=== PATIENT | female | born 1940 | race Caucasian/White ===

== ENCOUNTER → 2020-12-15 | Outpatient (CLI) | payer MEDICARE, BC ==
[~2020-12-15] MED LIST: INDOCIN 50 MG C50 MG PO; ZOFRAN ODT 4 MG4 MG PO
== END ==
LOC: MRI 15:45
DX: C34.11 Malignant neoplasm of upper lobe, right bronchus or lung (principal); G31.9 Degenerative disease of nervous system, unspecified
CPT/HCPCS: 70553; A9577

== ENCOUNTER 2020-12-29 19:04 | Emergency (ER) | payer MEDICARE, BC ==
[2020-12-29 21:22] LABS: HEMOGLOBIN 8.4 gm/dl (12.3-15.3); RED BLOOD COUNT 2.91 M/UL (4.00-5.10); WHITE BLOOD COUNT 13.2 K/UL (4.5-11.0)
[2020-12-29] MEDS ORDERED: ZOFRAN ODT 4 MG4 MG PO (22:07)
[2020-12-29] MEDS ORDERED: INDOCIN 50 MG C50 MG PO (22:07)
== END 2020-12-29 22:33 | disposition home or self-care (01) ==
LOC: ER1 19:04
PROVIDERS: Physician Assistant
DX: M10.9 Gout, unspecified (principal); I11.9 Hypertensive heart disease without heart failure; E78.5 Hyperlipidemia, unspecified; J44.9 Chronic obstructive pulmonary disease, unspecified; Z85.118 Personal history of other malignant neoplasm of bronchus and lung
CPT/HCPCS: 80053; 84550; 85025; 85652; 86140; 99283

== ENCOUNTER → 2021-01-22 | Outpatient (CLI) | payer MEDICARE, BC | LOC: HEART 5 09:05 | DX: C34.11 Malignant neoplasm of upper lobe, right bronchus or lung (principal) | CPT/HCPCS: 94060; 94729 ==